=== PATIENT | female | born 1990 | race Caucasian/White ===

== ENCOUNTER 2018-11-03 11:32 | Emergency (ER) | payer BC, MEDICAID ==
[~2018-11-03] VITALS: Ht 165.1 cm; Wt 63.5 kg
[~2018-11-03 11:32] MED LIST: PREN1TAB39 PO
--- OUTSIDE RECORDS SUMMARY | 2018-11-03 11:39 | XMS REPORT | CCD ---
Author Author LUCHO YOLIE Jose Unknown Address [address] [place], [place] [id number] Care Team Providers Care Mold Puller Name Role Phone JAIN, KWAKU DO Attphys JAIN, KWAKU DO Prisurg Vital Signs Unknown or Not Available. Allergies Allergy Code Allergy Type Reaction Status CODEINE 2670 Drug allergy Active Procedures Procedure Code Procedure Type Date CBC W/ AUTO DIFF (RFLX MAN DIFF IF IND) 3455163 SNOMED CT 02/26/2015 COMPREHENSIVE METABOLIC PANEL 939600896 SNOMED CT [address] 02/26/2015 UA ROUTINE C&S IF IND 488730212 SNOMED CT 02/26/2015 ^CBC W/AUTO DIFF 4105687 SNOMED CT 02/26/2015 ^UA AUTO DIPSTICK ONLY 376748123 SNOMED CT 02/26/2015 History of Immunizations Immunization Code Date OPV 02 1992 OPV 02 1992 OPV 02 08/06/1993 OPV 02 03/30/1996 MMR 03 08/06/1993 MMR 03 03/30/1996 Hep B, adolescent or pediatric 08 03/30/1996 Hep B, adolescent or pediatric 08 11/18/1996 Hep B, adolescent or pediatric 08 01/20/1997 Hib (HbOC) 47 1992 Hib (HbOC) 47 1992 Hib (HbOC) 47 1992 Hib (HbOC) 47 08/06/1993 Novel [id number] 127 07/25/2009 Influenza, seasonal, injectable 141 06/01/2011 Problems Problem Code Start Date Resolved Date Status VAGINAL DELIVERY 650 Active Results COMPREHENSIVE METABOLIC PANEL - Collect Date/Time: 02/26/2015 10:05 Test Name Code Test Result Test Units Test Ref Range GLUCOSE 2345-7 98 MG/DL L=70 H=100 SODIUM 2951-2 139 MEQ/L L=135 H=148 POTASSIUM 2823-3 4.1 MEQ/L L=3.5 H=5.3 CHLORIDE 2075-0 108 MEQ/L L=96 H=110 CO2 2028-9 22 MEQ/L L=22 H=29 BUN 3094-0 13 MG/DL L=8 H=22 CREATININE 2160-0 0.7 MG/DL L=0.6 H=1.6 SGOT/AST 1920-8 17 IU/L L=10 H=40 SGPT/ALT 1742-6 14 IU/L L=8 H=54 ALK PHOS 6768-6 51 IU/L L=35 H=115 TOTAL PROTEIN 2885-2 6.9 G/DL L=5.5 H=8.5 ALBUMIN 1751-7 4.2 G/DL L=3.1 H=5.4 TOTAL BILI 1975-2 0.7 MG/DL L=0.0 H=1.5 CALCIUM 37357-0 9.0 MG/DL L=8.2 H=10.6 AGE 24 yrs GFR NonAA 105 GFR AA 127 eGFR >60 N/A eGFR AA* >60 N/A LIPASE - Collect Date/Time: 02/26/2015 10:05 Test Name Code Test Result Test Units Test Ref Range LIPASE 3040-3 17 U/L L=8 H=78 CBC W/ AUTO DIFF (RFLX MAN DIFF IF IND) - Collect Date/Time: 02/26/2015 10:05 Test Name Code Test Result Test Units Test Ref Range WBC 99347-6 10.3 TH/CMM L=4.5 H=10.8 RBC 789-8 4.68 ML/CMM L=4.20 H=5.40 HGB 718-7 13.7 G/DL L=12.0 H=16.0 HCT 4544-3 40.0 % L=37.0 H=47.0 MCV 86 FL L=81 H=99 MCH 29.3 PG L=27.0 H=33.0 MCHC 34.3 G/DL L=31.0 H=36.0 RDW SD 41 FL L=36 H=50 RDW CV 13.0 % L=0.0 H=14.8 MPV 12.3 FL L=9.3 H=12.5 PLT 777-3 148 TH/CMM L=130 H=440 NRBC# 0.00 TH/CMM L=0.00 H=0.00 NRBC% 0.0 /100WBC L=0.0 H=2.0 %NEUT 88.7 % %LYMP 5.9 % %MONO 4.9 % %EOS 0.4 % %BASO 0.1 % #NEUT 9.14 TH/CMM L=2.10 H=8.20 #LYMP 0.61 TH/CMM L=0.90 H=5.20 #MONO 0.50 TH/CMM L=0.16 H=1.00 #EOS 0.04 TH/CMM L=0.00 H=0.80 #BASO 0.01 TH/CMM L=0.00 H=0.20 MANUAL DIFF NOT IND N/A UA ROUTINE C&S IF IND - Collect Date/Time: 02/26/2015 11:36 Test Name Code Test Result Test Units Test Ref Range COLOR YELLOW N/A NL: YELLOW APPEARANCE CLEAR N/A NL: CLEAR SPEC GRAV 1.020 N/A NL: 1.002 - 1.022 pH 6.0 N/A NL: 5 - 9 PROTEIN NEGATIVE N/A NL: NEGATIVE mg/dl GLUCOSE NEGATIVE N/A NL: NEGATIVE mg/dl KETONE NEGATIVE N/A NL: NEGATIVE mg/dl BILIRUBIN NEGATIVE N/A NL: NEGATIVE BLOOD NEGATIVE N/A NL: NEGATIVE NITRITE NEGATIVE N/A NL: NEGATIVE LEUK SCREEN NEGATIVE N/A NL: NEGATIVE MICRO INDICATED? NOT INDICATED N/A Active Medications Unknown or Not Available. Medications Administered During Visit Unknown or Not Available. Encounters Encounter Diagnosis Diagnosis Code Start Date NONINF GASTROENTERIT NEC 5589 02/26/2015 Social History Smoking Status Code Start Date End Date Never smoker [id number] Patient Decision Aids Unknown or Not Available. Discharge Instructions You were admitted to [facility] on 02/26/2015 with a principal diagnosis of NONINF GASTROENTERIT NEC. You were discharged from [facility] on 02/26/2015. Should you have any questions prior to discharge, please contact a member of your healthcare team. If you have left the hospital and have any questions, please contact your primary care physician. Chief Complaint and Reason For Visit Chief Complaint Date of Onset VOMITING DIARRHEA Function Status Unknown or Not Available. Referral/Transition of Care Unknown or Not Available.
--- OUTSIDE RECORDS SUMMARY | 2018-11-03 11:39 | XMS REPORT | Continuity of Care Document ---
Author Author [facility] Organization [facility] Address Unknown Phone Unavailable Allergies Active Description Code Type Severity Reaction Onset Reported/Identified Relationship to Patient Clinical Status Yes CODEINE SULFATE SEVERE UNKNOWN Medications Medication Packaging Start Date Stop Date Route Dosage Sig KETOROLAC VIAL INJ 60 MG/2CC (TORADOL VIAL) MG 03/12/2017 03/12/2017 ONCE&1136 KETOROLAC VIAL INJ 60 MG/2CC (TORADOL VIAL) MG 06/05/2018 06/05/2018 ONCE&1232 PROMETHAZINE VIAL IM ONLY!! INJ 50 MG/CC (PHENERGAN VIAL (CAUTION!! ) MG 06/05/2018 06/05/2018 ONCE&1232 Problems Date Dx Coded Attending Type Code Diagnosis Diagnosed By 11/06/2009 Ot 789.02 ABDOMINAL PAIN, LEFT UPPER QUADRANT 11/20/2011 Ot 644.13 THREAT LABOR NEC-ANTEPAR 05/27/2016 MANI CARTER Ot 787.02 NAUSEA ALONE 05/27/2016 MANI CARTER Ot 789.00 ABDOMINAL PAIN, UNSPECIFIED SITE 03/12/2017 Zayra Li 724.3 SCIATICA 03/12/2017 Zayra Li M54.31 SCIATICA, RIGHT SIDE 06/05/2018 Reji Rios 346.90 MIGRAINE, UNSPECIFIED, WITHOUT MENTION OF INTRACTABLE MIGRAINE, WITHOUT MENTION OF STATUS MIGRAINOSUS 06/05/2018 Reji Rios G43.909 MIGRAINE, UNSP, NOT INTRACTABLE, WITHOUT STATUS MIGRAINOSUS 07/07/2018 Shadia Rodriguez 461.9 ACUTE SINUSITIS, UNSPECIFIED 07/07/2018 Shadia Rodriguez 462 ACUTE PHARYNGITIS 07/07/2018 Shadia Rodriguez 478.19 OTHER DISEASE OF NASAL CAVITY AND SINUSES 07/07/2018 Shadia Rodriguez 780.60 FEVER, UNSPECIFIED 07/07/2018 Jennifer, Shadia W J01.90 ACUTE SINUSITIS, UNSPECIFIED 07/07/2018 Jennifer, Shadia W J02.9 ACUTE PHARYNGITIS, UNSPECIFIED 07/07/2018 Jennifer, Shadia W P81.9 DISTURBANCE OF TEMPERATURE REGULATION OF , UNSPECIFIED 07/07/2018 Jennifer, Shadia W R09.81 NASAL CONGESTION 07/07/2018 Jennifer, Shadia W V11.8 07/07/2018 Shadia Rodriguez W V12.3 PERSONAL HISTORY OF DISEASES OF BLOOD AND BLOOD-FORMING ORGANS 07/07/2018 Shadia Rodriguez W Z86.2 PERSONAL HISTORY OF DISEASES OF THE BLOOD AND BLOOD-FORMING ORGANS AND CERTAIN DISORDERS INVOLVING THE IMMUNE MECHANISM 07/07/2018 Jennifer, Shadia W Z86.59 PERSONAL HISTORY OF OTHER MENTAL AND BEHAVIORAL DISORDERS 07/07/2018 Shadia Rodriguez W 461.9 ACUTE SINUSITIS, UNSPECIFIED 07/07/2018 Shadia Rodriguez W 462 ACUTE PHARYNGITIS 07/07/2018 Shadia Rodriguez W 478.19 OTHER DISEASE OF NASAL CAVITY AND SINUSES 07/07/2018 Shadia Rodriguez W 780.60 FEVER, UNSPECIFIED 07/07/2018 Shadia Rodriguez W J01.90 ACUTE SINUSITIS, UNSPECIFIED 07/07/2018 Shadia Rodriguez W J02.9 ACUTE PHARYNGITIS, UNSPECIFIED 07/07/2018 Shadia Rodriguez W P81.9 DISTURBANCE OF TEMPERATURE REGULATION OF , UNSPECIFIED 07/07/2018 Shadia Rodriguez W R09.81 NASAL CONGESTION 07/07/2018 Shadia Rodriguez W V11.8 07/07/2018 Shadia Rodriguez W V12.3 07/07/2018 Shadia Rodriguez W Z86.2 PERSONAL HISTORY OF DISEASES OF THE BLOOD AND BLOOD-FORMING ORGANS AND CERTAIN DISORDERS INVOLVING THE IMMUNE MECHANISM 07/07/2018 Shadia Rodriguez W Z86.59 PERSONAL HISTORY OF OTHER MENTAL AND BEHAVIORAL DISORDERS Procedures There is no data. Results Test Result Range - 07/07/18 16:53 Anion Gap 15 6-14 BUN 16 mg/dL 5-25 Calcium 9.9 mg/dL 8.3-10.4 Chloride 106 mmol/L 95-114 CO2 21 mEq/L 22-33 Creat 0.70 mg/dL 0.50-1.50 eGFR 101 mL/min/1.73m2 >59 Glucose 74 mg/dL 70-110 Osmo 285 280-295 Potassium 3.9 mmol/L 3.5-5.3 Sodium 138 mmol/L 134-148 Encounters ACCT No. Visit Date/Time Discharge Status Pt. Type Provider Facility Loc./Unit Complaint [id number] 06/03/2013 10:16:00 06/03/2013 23:59:59 CLS Outpatient MANI CARTER [facility] RAD ABD PAIN,NAUSEA [id number] 11/20/2011 11:52:00 Document Registration [id number] 11/06/2009 10:18:00 Document Registration [id number] 07/07/2018 16:52:00 07/07/2018 23:59:00 DIS Outpatient Shadia Rodriguez [id number] 06/05/2018 11:56:00 06/05/2018 13:10:00 DIS Outpatient Blanca [facility] [place] [id number] 03/12/2017 11:18:00 03/12/2017 12:02:00 [place] [facility] [place] [id number] 03/12/2017 11:36:53 Document Registration
[2018-11-03 12:00] LABS: BASOPHILS % (AUTO) 0 % (0-10); EOSINOPHILS # (AUTO) 0.1 10^3/uL (0.0-0.3); EOSINOPHILS % (AUTO) 2 % (0-10); HEMATOCRIT 41 % (35-52); HEMOGLOBIN 13.7 G/DL (11.5-16.0); LYMPHOCYTES # (AUTO) 1.4 X 10^3 (1.0-4.0); LYMPHOCYTES % (AUTO) 25 % (12-44); MEAN CORPUSCULAR HEMOGLOBIN 28 PG (25-34); MEAN CORPUSCULAR HGB CONC 34 G/DL (32-36); MEAN CORPUSCULAR VOLUME 85 FL (80-99); MEAN PLATELET VOLUME 12.8 FL (7.4-10.4); MONOCYTES # (AUTO) 0.4 X 10^3 (0.0-1.0); MONOCYTES % (AUTO) 7 % (0-12); NEUTROPHILS # (AUTO) 3.5 X 10^3 (1.8-7.8); NEUTROPHILS % (AUTO) 65 % (42-75); PLATELET COUNT 168 10^3/uL (130-400); RED CELL DISTRIBUTION WIDTH 13.2 % (10.0-14.5); WHITE BLOOD COUNT 5.4 10^3/uL (4.3-11.0)
--- NOTE | 2018-11-03 12:11 | ED Chest Pain ---
General Chief Complaint: Chest Pain Stated Complaint: SHARP PAIN IN CHEST SUGAR DROPPED Source: patient Exam Limitations: no limitations History of Present Illness Date Seen by Provider: Nov 03, 2018 Time Seen by Provider: 12:09 Initial Comments 28-year-old female who presents to the emergency room with complaints of left sided chest wall pain that is worse with deep breathing and when she pushes on her chest wall. She reports that this started at 1030 this a.m. She denies shortness of breath, nausea, vomiting, dizziness, lightheadedness. She is also concerned that she feels like her blood sugar dropped. She did not check her blood sugar but feels that it did drop because her hands started to shake. She denies having diabetes or hypoglycemia. Allergies and Home Medications Allergies Coded Allergies: codeine (Verified Allergy, Unknown, 11/03/18) Home Medications Vits W-Ca,Fe,Fa(<1MG) 1 Each Tablet, 1 TAB PO DAILY, (Reported) Patient Home Medication List Home Medication List Reviewed: Yes Review of Systems Review of Systems Constitutional: no symptoms reported, see HPI Respiratory: See HPI, Other (Chest pain with deep breathing) Cardiovascular: See HPI, Chest Pain All Other Systems Reviewed Negative Unless Noted: Yes Past Nadakyt-Xttcsy-Yfokqc Hx Past Med/Social Hx: Reviewed Nursing Past Med/Soc Hx Patient Social History Recent Foreign Travel: No Contact w/Someone Who Travel: No Immunizations Up To Date Date of Influenza Vaccine: Oct 01, 2011 Family Medical History Reviewed Nursing Family Hx Physical Exam Vital Signs Vital Signs - First Documented Capillary Refill : Less Than 3 Seconds Height, Weight, BMI Height: '" Weight: lbs. oz. kg; BMI Method: General Appearance: No Apparent Distress, WD/WN Respiratory: Lungs Clear, Normal Breath Sounds, No Accessory Muscle Use, No Respiratory Distress, Other (Left-sided chest wall tenderness) Cardiovascular: Regular Rate, Rhythm, No Edema, No Gallop, No JVD, No Murmur, Normal Peripheral Pulses, Other (Chest pain is reproducible with palpation) Extremity: Normal Capillary Refill Neurologic/Psychiatric: Alert, Oriented x3, Normal Mood/Affect Skin: Normal Color, Warm/Dry Progress/Results/Core Measures Results/Orders Lab Results Laboratory Tests Test 11/03/18 11:50 11/03/18 12:12 Range/Units White Blood Count 5.4 4.3-11.0 10^3/uL Red Blood Count 4.82 4.35-5.85 10^6/uL Hemoglobin 13.7 11.5-16.0 G/DL Hematocrit 41 35-52 % Mean Corpuscular Volume 85 80-99 FL Mean Corpuscular Hemoglobin 28 25-34 PG Mean Corpuscular Hemoglobin Concent 34 32-36 G/DL Red Cell Distribution Width 13.2 10.0-14.5 % Platelet Count 168 130-400 10^3/uL Mean Platelet Volume 12.8 H 7.4-10.4 FL Neutrophils (%) (Auto) 65 42-75 % Lymphocytes (%) (Auto) 25 12-44 % Monocytes (%) (Auto) 7 0-12 % Eosinophils (%) (Auto) 2 0-10 % Basophils (%) (Auto) 0 0-10 % Neutrophils # (Auto) 3.5 1.8-7.8 X 10^3 Lymphocytes # (Auto) 1.4 1.0-4.0 X 10^3 Monocytes # (Auto) 0.4 0.0-1.0 X 10^3 Eosinophils # (Auto) 0.1 0.0-0.3 10^3/uL Basophils # (Auto) 0.0 0.0-0.1 10^3/uL Sodium Level 140 135-145 MMOL/L Potassium Level 3.7 3.6-5.0 MMOL/L Chloride Level 107 98-107 MMOL/L Carbon Dioxide Level 24 21-32 MMOL/L Anion Gap 9 5-14 MMOL/L Blood Urea Nitrogen 10 7-18 MG/DL Creatinine 0.83 0.60-1.30 MG/DL Estimat Glomerular Filtration Rate > 60 BUN/Creatinine Ratio 12 Glucose Level 84 70-105 MG/DL Calcium Level 9.6 8.5-10.1 MG/DL Corrected Calcium 9.2 8.5-10.1 MG/DL Total Bilirubin 0.9 0.1-1.0 MG/DL Aspartate Amino Transf (AST/SGOT) 15 5-34 U/L Alanine Aminotransferase (ALT/SGPT) 14 0-55 U/L Alkaline Phosphatase 46 40-136 U/L Troponin I < 0.028 <0.028 NG/ML Total Protein 7.0 6.4-8.2 GM/DL Albumin 4.5 3.2-4.5 GM/DL Glucometer 83 70-110 MG/DL My Orders Orders - KSENIA ROBERSON Cbc With Automated Diff (11/03/18 11:49) Chest 1 View, Ap/Pa Only (11/03/18 11:49) Cardiac Profile 1 (11/03/18 11:49) Comprehensive Metabolic Panel (11/03/18 11:49) Saline Lock/Iv-Start (11/03/18 11:49) Ketorolac Injection (Toradol Injection) (11/03/18 12:15) Medications Given in ED Vital Signs/I&O 11/03/18 11/03/18 11/03/18 11:42 11:42 13:05 Temp 98.2 98.2 Pulse 70 56 Resp 15 15 B/P (MAP) 119/74 (89) 95/59 (71) Pulse Ox 98 97 O2 Delivery Room Air Room Air Room Air Progress Progress Note : Time: 12:43 Progress Note I have seen and evaluated the patient. I have informed her of her imaging and laboratory studies. She is pain-free after the Toradol administration. She has exam findings consistent with pleuritic chest pain. She agrees with plan of care , plans for discharge, return precautions were given. Diagnostic Imaging Diagonstic Imaging: Xray Plain Films/CT/US/NM/MRI: chest Comments [facility] [place] NAME: LC CR[facility] REC#: [id number] PT STATUS: REG ER : 1990 PHYSICIAN: KSENIA ROBERSON [facility] ADMIT DATE: 11/03/18/ER Draft Date of Exam:11/03/18 CHEST 1 VIEW, AP/PA ONLY PATIENT HISTORY: Chest pain. TECHNIQUE: Single frontal view of the chest. COMPARISON: None. FINDINGS: The lung volumes are normal. No focal consolidation is seen. No large pleural effusion or pneumothorax is seen. The cardiomediastinal silhouette is normal in size and contour. No acute osseous abnormality is seen. IMPRESSION: No acute pulmonary abnormality seen. Dictated on workstation # [id number] Dict: 11/03/18 1228 Trans: 11/03/18 1231 AS6 [id number] Interpreted by: ODALIS XIE MD Electronically signed by: Reviewed: Reviewed by Me Departure Impression Primary Impression: Pleurisy Disposition: 01 HOME, SELF-CARE Condition: Stable/Unchanged Departure-Patient Inst. Decision time for Depature: 12:43 Referrals: NO,LOCAL PHYSICIAN (PCP/Family) Primary Care Physician Patient Instructions: Pleuritic Chest Pain (DC) Add. Discharge Instructions: You may use ibuprofen and Tylenol as directed by the bottle for pain relief. Follow-up with your primary care provider within 1 week for recheck. Return back to the emergency room for worsening symptoms or concerns as needed. All discharge instructions reviewed with patient and/or family. Voiced understanding. KSENIA ROBERSON Nov 03, 2018 12:11
[2018-11-03] MEDS ORDERED: KETOROLAC 30 MG/ML VIAL IVP ONE (12:15)
[2018-11-03 12:21] LABS: ALANINE AMINOTRANSFERASE 14 U/L (0-55); ALBUMIN 4.5 GM/DL (3.2-4.5); ALKALINE PHOSPHATASE 46 U/L (40-136); BILIRUBIN,TOTAL 0.9 MG/DL (0.1-1.0); BUN/CREATININE RATIO 12; CALCIUM 9.6 MG/DL (8.5-10.1); CARBON DIOXIDE 24 MMOL/L (21-32); CHLORIDE 107 MMOL/L (98-107); CREATININE SERUM 0.83 MG/DL (0.60-1.30); GFR ESTIMATED > 60; GLUCOSE 84 MG/DL (70-105); POTASSIUM 3.7 MMOL/L (3.6-5.0); SODIUM 140 MMOL/L (135-145)
--- NOTE | 2018-11-03 12:32 | Diagnostic Imaging Report ---
PATIENT HISTORY: Chest pain. TECHNIQUE: Single frontal view of the chest. COMPARISON: None. FINDINGS: The lung volumes are normal. No focal consolidation is seen. No large pleural effusion or pneumothorax is seen. The cardiomediastinal silhouette is normal in size and contour. No acute osseous abnormality is seen. IMPRESSION: No acute pulmonary abnormality seen. Dictated by: Dictated on workstation # [id number]
[2018-11-03 13:05] VITALS: BP 95/59
== END 2018-11-03 13:05 | disposition home or self-care (01) ==
LOC: EDUNIT# 11:32 → ER 11:35
DX: R07.81 Pleurodynia (principal); Z88.5 Allergy status to narcotic agent
CPT/HCPCS: 36415; 71045; 80053; 82962; 84484; 85025; 93005

== ENCOUNTER → 2019-01-04 | Outpatient (REF) ==
--- NOTE | 2019-01-04 12:40 | Diagnostic Imaging Report ---
INDICATION: Right foot injury. FINDINGS: Three views of the right foot show no fracture, dislocation or other acute abnormalities. IMPRESSION: Negative right foot. Dictated by: Dictated on workstation # [id number]
== END | disposition home or self-care (01) ==
LOC: RAD 12:10
PROVIDERS: ATTEND Nurse Practitioner Family
CPT/HCPCS: 73630

== ENCOUNTER 2019-08-17 14:44 | Emergency (ER) | payer MEDICAID ==
[~2019-08-17] VITALS: Ht 167.7 cm; Wt 68.1 kg
[2019-08-17] MEDS ORDERED: ACET/BUTAL/CAFF (FIORICET) TAB PO PRN (16:00)
--- NOTE | 2019-08-17 16:05 | ED General ---
General Chief Complaint: General Problems/Pain Stated Complaint: HALLUCINATIONS Source of Information: Patient Exam Limitations: No Limitations History of Present Illness Date Seen by Provider: Aug 17, 2019 Time Seen by Provider: 16:01 Initial Comments To ER by mother with reports of hallucinations. These began Friday with a headache. No fevers. Mother has a history of hemiplegic migraines that present as a stroke she states, she thought maybe a migraine to be associated with the hallucinations. The hallucinations were evaluated as well as the migraine at [facility] with CT scan and labs. She was given medications which did alleviate the headache. Hallucinations at that time included that her sister who was with her and her nephew appeared to be covered in blood and "gravely injured. Hallucinations subsided then recurred today while she was driving, she believes that she could see a group of people on the side of the road waving cars trying to stop them however no one was stopping. Later while driving with her mother she told her mother to watch out for the fluid here, there was no vertigo ear. No personal history of mental illness, denies drug use. Does have an aunt with bipolar/schizophrenia. Timing/Duration: 1-2 Days Severity: Moderate Associated Systoms: Headaches; No Nausea/Vomiting Allergies and Home Medications Allergies Coded Allergies: codeine (Verified Allergy, Unknown, 11/03/18) Home Medications Vits W-Ca,Fe,Fa(<1MG) 1 Each Tablet, 1 TAB PO DAILY, (Reported) Quetiapine Fumarate 25 Mg Tablet, 25 MG PO BID Prescribed by: DAVID TELLEZ on 08/17/19 6361 Patient Home Medication List Home Medication List Reviewed: Yes Review of Systems Review of Systems Constitutional: see HPI; No chills, No fever, No malaise, No weakness EENTM: see HPI Respiratory: no symptoms reported Cardiovascular: no symptoms reported Genitourinary: no symptoms reported Musculoskeletal: no symptoms reported Skin: no symptoms reported Psychiatric/Neurological: See HPI; Denies Anxiety, Denies Depressed, Denies Emotional Problems; Headache Hematologic/Lymphatic: No Symptoms Reported Immunological/Allergic: no symptoms reported Past Mdclrri-Pzdwjx-Tystuf Hx Patient Social History Alcohol Use: Denies Use Recreational Drug Use: No Smoking Status: Former Smoker Type Used: Cigarettes 2nd Hand Smoke Exposure: No Recent Foreign Travel: No Contact w/Someone Who Travel: No Recent Hopitalizations: No Physical Abuse: No Sexual Abuse: No Mistreated: No Fear: No Immunizations Up To Date Tetanus Booster (TDap): Unknown PED Vaccines UTD: Yes Date of Influenza Vaccine: Oct 01, 2011 Past Medical History Surgeries: Yes Appendectomy, Gallbladder, Orthopedic Respiratory: No Cardiac: No Neurological: No Genitourinary: No Gastrointestinal: No Musculoskeletal: No HEENT: No Cancer: No Psychosocial: No Integumentary: No Blood Disorders: No Adverse Reaction/Blood Tranf: No Physical Exam Vital Signs Vital Signs - First Documented 08/17/19 15:44 Temp 36.5 Pulse 75 Resp 20 B/P (MAP) 115/75 (88) Pulse Ox 98 O2 Delivery Room Air Capillary Refill : Height, Weight, BMI Height: 5'5.00" Weight: 140lbs. oz. 63.885568yr; BMI Method:Estimated General Appearance: No Apparent Distress, WD/WN, Other (GCS 15 alert and oriented, conversation is appropriate and pleasant, responses are appropriate.) Eyes: Bilateral Eye Normal Inspection, Bilateral Eye PERRL, Bilateral Eye EOMI HEENT: PERRL/EOMI, TMs Normal, Normal ENT Inspection Neck: Full Range of Motion, Normal Inspection; No Tender Lateral, No Tender Midline Respiratory: No Accessory Muscle Use, No Respiratory Distress Cardiovascular: Regular Rate, Rhythm, Normal Peripheral Pulses Gastrointestinal: Non Tender, Soft Extremity: Normal Capillary Refill, Normal Inspection Neurologic/Psychiatric: Alert, Oriented x3 Skin: Normal Color, Warm/Dry Progress/Results/Core Measures Suspected Sepsis SIRS Temperature: Pulse: Respiratory Rate: Laboratory Tests 08/17/19 17:02: White Blood Count 6.3 Blood Pressure / Mean: Laboratory Tests 08/17/19 17:02: Creatinine 0.81, Platelet Count 174, Total Bilirubin 0.6 Results/Orders Lab Results Laboratory Tests Test 08/17/19 16:45 08/17/19 17:02 Range/Units Urine Color YELLOW Urine Clarity CLEAR Urine pH 5.5 5-9 Urine Specific Raymond >=1.030 1.016-1.022 Urine Protein NEGATIVE NEGATIVE Urine Glucose (UA) NEGATIVE NEGATIVE Urine Ketones NEGATIVE NEGATIVE Urine Nitrite NEGATIVE NEGATIVE Urine Bilirubin NEGATIVE NEGATIVE Urine Urobilinogen 0.2 < = 1.0 MG/DL Urine Leukocyte Esterase TRACE NEGATIVE Urine RBC (Auto) TRACE-I NEGATIVE Urine RBC NONE /HPF Urine WBC 2-5 /HPF Urine Squamous Epithelial Cells 10-25 H /HPF Urine Crystals NONE /LPF Urine Bacteria MODERATE H /HPF Urine Casts NONE /LPF Urine Mucus NEGATIVE /LPF Urine Culture Indicated NO Urine Opiates Screen NEGATIVE NEGATIVE Urine Oxycodone Screen NEGATIVE NEGATIVE Urine Methadone Screen NEGATIVE NEGATIVE Urine Propoxyphene Screen NEGATIVE NEGATIVE Urine Barbiturates Screen NEGATIVE NEGATIVE Ur Tricyclic Antidepressants Screen NEGATIVE NEGATIVE Urine Phencyclidine Screen NEGATIVE NEGATIVE Urine Amphetamines Screen NEGATIVE NEGATIVE Urine Methamphetamines Screen NEGATIVE NEGATIVE Urine Benzodiazepines Screen NEGATIVE NEGATIVE Urine Cocaine Screen NEGATIVE NEGATIVE Urine Cannabinoids Screen NEGATIVE NEGATIVE White Blood Count 6.3 4.3-11.0 10^3/uL Red Blood Count 4.50 4.35-5.85 10^6/uL Hemoglobin 13.1 11.5-16.0 G/DL Hematocrit 39 35-52 % Mean Corpuscular Volume 86 80-99 FL Mean Corpuscular Hemoglobin 29 25-34 PG Mean Corpuscular Hemoglobin Concent 34 32-36 G/DL Red Cell Distribution Width 12.6 10.0-14.5 % Platelet Count 174 130-400 10^3/uL Mean Platelet Volume 12.3 H 7.4-10.4 FL Neutrophils (%) (Auto) 67 42-75 % Lymphocytes (%) (Auto) 25 12-44 % Monocytes (%) (Auto) 6 0-12 % Eosinophils (%) (Auto) 3 0-10 % Basophils (%) (Auto) 0 0-10 % Neutrophils # (Auto) 4.2 1.8-7.8 X 10^3 Lymphocytes # (Auto) 1.6 1.0-4.0 X 10^3 Monocytes # (Auto) 0.4 0.0-1.0 X 10^3 Eosinophils # (Auto) 0.2 0.0-0.3 10^3/uL Basophils # (Auto) 0.0 0.0-0.1 10^3/uL D-Dimer <= 0.27 0.00-0.49 UG/ML Sodium Level 139 135-145 MMOL/L Potassium Level 4.0 3.6-5.0 MMOL/L Chloride Level 108 H 98-107 MMOL/L Carbon Dioxide Level 21 21-32 MMOL/L Anion Gap 10 5-14 MMOL/L Blood Urea Nitrogen 13 7-18 MG/DL Creatinine 0.81 0.60-1.30 MG/DL Estimat Glomerular Filtration Rate > 60 BUN/Creatinine Ratio 16 Glucose Level 85 70-105 MG/DL Calcium Level 9.1 8.5-10.1 MG/DL Corrected Calcium 8.9 8.5-10.1 MG/DL Total Bilirubin 0.6 0.1-1.0 MG/DL Aspartate Amino Transf (AST/SGOT) 11 5-34 U/L Alanine Aminotransferase (ALT/SGPT) 15 0-55 U/L Alkaline Phosphatase 40 40-136 U/L Total Protein 6.7 6.4-8.2 GM/DL Albumin 4.2 3.2-4.5 GM/DL Thyroid Stimulating Hormone (TSH) 0.52 0.35-4.94 UIU/ML Free Thyroxine 0.91 0.70-1.48 NG/DL Serum Test, Qualitative NEGATIVE NEGATIVE My Orders Orders - DAVID TELLEZ APRN Cbc With Automated Diff (08/17/19 15:58) Thyroid Stimulating Hormone (08/17/19 15:58) Free T4 (Free Thyroxine) (08/17/19 15:58) Ct Head Wo (08/17/19 15:58) Ua Culture If Indicated (08/17/19 15:58) Drug Screen Stat (Urine) (08/17/19 15:58) Comprehensive Metabolic Panel (08/17/19 15:58) Hcg,Qualitative Serum (08/17/19 15:58) Butalbital/Apap/Caffeine Tab (Fioricet T (08/17/19 16:00) Fibrin Degradation Products (08/17/19 16:34) Medications Given in ED Current Medications Medications Dose Ordered Sig/Luis Route Start Time Stop Time Status Last Admin Dose Admin Acetaminophen/ Butalbital/ Caffeine 1 tab ONCE PRN PO 08/17/19 16:00 08/17/19 18:05 DC 08/17/19 17:50 1 TAB Vital Signs/I&O 08/17/19 08/17/19 15:44 18:05 Temp 36.5 36.5 Pulse 75 75 Resp 20 20 B/P (MAP) 115/75 (88) 115/75 (88) Pulse Ox 98 98 O2 Delivery Room Air Capillary Refill : Diagnostic Imaging Diagonstic Imaging: Xray Comments NAME: LC CRUZ REC#: [id number] PT STATUS: REG ER : 1990 PHYSICIAN: DAVID TELLEZ APRN ADMIT DATE: 08/17/19/ER Draft POSDate of Exam:08/17/19 CT HEAD WO PROCEDURE: CT head without contrast. TECHNIQUE: Multiple contiguous axial images were obtained through the brain without the use of intravenous contrast. Auto Exposure Controls were utilized during the CT exam to meet ALARA standards for radiation dose reduction. INDICATION: Head pain, hallucinations. FINDINGS: There is no hemorrhage, hydrocephalus, edema, mass, mass effect, or evidence for elevation of the intracranial pressures. The basal cisterns are patent, and there is no sulcal effacement. Figueroa-white matter differentiation is well maintained. Orbits, sinuses, and calvarium appear nonacute. IMPRESSION: Normal CT head. Dictated on workstation # [id number] Dict: 08/17/19 1617 Trans: 08/17/19 1619 [id number] Interpreted by: CHRISTOPHER WOODSON Electronically signed by: Departure Communication (Admissions) She is scheduled for an MRI outpatient tomorrow. She is alert and oriented cooperative pleasant here. Labs are unremarkable vitals are stable no nuchal rigidity Impression Primary Impression: Hallucination Disposition: 01 HOME, SELF-CARE Condition: Stable Departure-Patient Inst. Decision time for Depature: 17:25 Referrals: NO,LOCAL PHYSICIAN (PCP) Primary Care Physician LOLLY ROSE (Family) Primary Care Physician Patient Instructions: NO INSTRUCTIONS GIVEN Add. Discharge Instructions: 1. Return to ER for any concerns 2. Follow-up with your doctor. Medication as directed. All discharge instructions reviewed with patient and/or family. Voiced understanding. Scripts Quetiapine Fumarate (Seroquel) 25 Mg Tablet 25 MG PO BID, #10 TAB Prov: DAVID TELLEZ APRN 08/17/19 DAVID TELLEZ APRN Aug 17, 2019 16:05 POS
--- NOTE | 2019-08-17 16:20 | Diagnostic Imaging Report ---
PROCEDURE: CT head without contrast. TECHNIQUE: Multiple contiguous axial images were obtained through the brain without the use of intravenous contrast. Auto Exposure Controls were utilized during the CT exam to meet ALARA standards for radiation dose reduction. INDICATION: Head pain, hallucinations. FINDINGS: There is no hemorrhage, hydrocephalus, edema, mass, mass effect, or evidence for elevation of the intracranial pressures. The basal cisterns are patent, and there is no sulcal effacement. Figueroa-white matter differentiation is well maintained. Orbits, sinuses, and calvarium appear nonacute. IMPRESSION: Normal CT head. Dictated by: Dictated on workstation # [id number]
[2019-08-17 16:53] LABS: BILIRUBIN,URINE NEGATIVE (NEGATIVE); CLARITY,URINE CLEAR; COLOR,URINE YELLOW; GLUCOSE, URINE (UA) NEGATIVE (NEGATIVE); KETONES,URINE NEGATIVE (NEGATIVE); LEUKOCYTE ESTERASE ,URINE TRACE (NEGATIVE); NITRITE,URINE NEGATIVE (NEGATIVE); PH,URINE 5.5 (5-9); PROTEIN,URINE NEGATIVE (NEGATIVE)
[2019-08-17 17:06] LABS: AMPHETAMINE SCREEN, URINE NEGATIVE (NEGATIVE); BARBITURATE SCREEN URINE NEGATIVE (NEGATIVE); BENZODIAZEPINES SCREEN URINE NEGATIVE (NEGATIVE); CANNABINOID SCREEN, URINE NEGATIVE (NEGATIVE); COCAINE SCREEN URINE NEGATIVE (NEGATIVE); METHADONE STAT NEGATIVE (NEGATIVE); METHAMPHETAMINE SCREEN URINE S NEGATIVE (NEGATIVE); OPIATE SCREEN URINE NEGATIVE (NEGATIVE); OXYCODONE STAT NEGATIVE (NEGATIVE); PROPOXYPHENE STAT NEGATIVE (NEGATIVE); TRICYCLIC ANTIDEPRESSANTS SCRE NEGATIVE (NEGATIVE)
[2019-08-17 17:09] LABS: BASOPHILS % (AUTO) 0 % (0-10); EOSINOPHILS # (AUTO) 0.2 10^3/uL (0.0-0.3); EOSINOPHILS % (AUTO) 3 % (0-10); HEMATOCRIT 39 % (35-52); HEMOGLOBIN 13.1 G/DL (11.5-16.0); LYMPHOCYTES # (AUTO) 1.6 X 10^3 (1.0-4.0); LYMPHOCYTES % (AUTO) 25 % (12-44); MEAN CORPUSCULAR HEMOGLOBIN 29 PG (25-34); MEAN CORPUSCULAR HGB CONC 34 G/DL (32-36); MEAN CORPUSCULAR VOLUME 86 FL (80-99); MEAN PLATELET VOLUME 12.3 FL (7.4-10.4); MONOCYTES # (AUTO) 0.4 X 10^3 (0.0-1.0); MONOCYTES % (AUTO) 6 % (0-12); NEUTROPHILS # (AUTO) 4.2 X 10^3 (1.8-7.8); NEUTROPHILS % (AUTO) 67 % (42-75); PLATELET COUNT 174 10^3/uL (130-400); RED CELL DISTRIBUTION WIDTH 12.6 % (10.0-14.5); WHITE BLOOD COUNT 6.3 10^3/uL (4.3-11.0)
[2019-08-17 17:12] LABS: BACTERIA,URINE MODERATE /HPF
[2019-08-17] MEDS ORDERED: QUET25TA PO (17:27)
[2019-08-17 17:30] LABS: ALANINE AMINOTRANSFERASE 15 U/L (0-55); ALBUMIN 4.2 GM/DL (3.2-4.5); ALKALINE PHOSPHATASE 40 U/L (40-136); BILIRUBIN,TOTAL 0.6 MG/DL (0.1-1.0); BUN/CREATININE RATIO 16; CALCIUM 9.1 MG/DL (8.5-10.1); CARBON DIOXIDE 21 MMOL/L (21-32); CHLORIDE 108 MMOL/L (98-107); CREATININE SERUM 0.81 MG/DL (0.60-1.30); GFR ESTIMATED > 60; GLUCOSE 85 MG/DL (70-105); SODIUM 139 MMOL/L (135-145); TOTAL PROTEIN 6.7 GM/DL (6.4-8.2)
[2019-08-17 17:50] LABS: FREE T4 (FREE THYROXINE) 0.91 NG/DL (0.70-1.48)
[2019-08-17 18:05] VITALS: BP 115/75
== END 2019-08-17 18:05 | disposition home or self-care (01) ==
LOC: EDUNIT# 14:44 → ER 14:45
DX: R44.3 Hallucinations, unspecified (principal); Z88.5 Allergy status to narcotic agent; Z87.891 Personal history of nicotine dependence; Z90.49 Acquired absence of other specified parts of digestive tract
CPT/HCPCS: 36415; 70450; 80053; 80306; 81000; 84439; 84443; 84703; 85025; 85379

== ENCOUNTER → 2020-03-27 | Outpatient (CLI) | payer MEDICAID ==
[~2020-03-27] MED LIST changes: +QUET25TA PO
== END ==
LOC: CARD 11:39
PROVIDERS: ATTEND Internal Medicine Cardiovascular Disease
DX: R00.2 Palpitations (principal)
CPT/HCPCS: 93306

== ENCOUNTER 2020-08-17 07:10 | Emergency (ER) | payer MEDICAID ==
[~2020-08-17] VITALS: Ht 167.7 cm; Wt 68.0 kg
[2020-08-17 07:35] VITALS: BP 135/92
[2020-08-17] MEDS ORDERED: methylPREDNISolone 40 MG/ML (DEPO MEDROL) VIAL IM ONE (07:45)
[2020-08-17] MEDS ORDERED: BUPIVACAINE 0.5% 30 ML (SENSORCAINE) VIAL INJ ONE (07:45)
[2020-08-17] MEDS ORDERED: KETOROLAC 60 MG/2 ML VIAL IM ONE (07:45)
--- NOTE | 2020-08-17 07:52 | ED Back Pain ---
General Chief Complaint: Back Problems Stated Complaint: HIP PAIN Nursing Triage Note: PT TO RM 6 BY WHEELCHAIR WITH COMPLAINT OF LEFT SIDED BACK PAIN THAT RADIATES TO ANKLE. STATES HAS BEEN WORKED UP FOR SCIATICA PAIN BY PCP. STATES PAIN STARTED THIS MORNING AFTER CATCHING PANT LEG ON HEATER AND PULLED LEG BACK. Nursing Sepsis Screen: No Definite Risk Source of Information: Patient Exam Limitations: No Limitations History of Present Illness Date Seen by Provider: Aug 17, 2020 Time Seen by Provider: 07:34 Initial Comments Patient presents ER by private conveyance with chief complaint that this morning she was walking in her pants leg got caught on something causing her to hyperextend her hip and aggravate her known sciatic pain. She finished a course of steroids for her sciatic nerve pain from [facility] 1 week ago. She also has had problems with her hip as well as a fracture when she was 11 years old and her right ankle through the growth plate. She has not had to have any surgeries on this hip. She is not having any pain in the hip and no limitation to range of motion. She was planning to go back and see [facility] as the last course of steroids helped but did not completely stop her pain. She does occasionally take naproxen as necessary. She is not having loss of control of bowel or bladder, saddle anesthesia, falls or weakness. She does feel electric pain from time to time going all the way down to the level of her ankle. She has no history of previous imaging of her back. Allergies and Home Medications Allergies Coded Allergies: codeine (Verified Allergy, Unknown, 11/03/18) Home Medications Vits W-Ca,Fe,Fa(<1MG) 1 Each Tablet, 1 TAB PO DAILY, (Reported) Quetiapine Fumarate 25 Mg Tablet, 25 MG PO BID Prescribed by: DAVID TELLEZ on 08/17/19 3825 Patient Home Medication List Home Medication List Reviewed: Yes Review of Systems Constitutional: No chills, No diaphoresis EENTM: No ear discharge, No ear pain Respiratory: No cough, No short of breath Cardiovascular: No chest pain, No edema Gastrointestinal: No abdominal pain, No nausea, No vomiting Genitourinary: No discharge, No dysuria Control/STD Prophylaxis: IUD Musculoskeletal: see HPI, back pain, joint pain All Other Systems Reviewed Negative Unless Noted: Yes Past Mntzgbh-Wrpzdq-Djuqjg Hx Patient Social History Alcohol Use: Denies Use Recreational Drug Use: No Smoking Status: Former Smoker Type Used: Cigarettes 2nd Hand Smoke Exposure: No Recent Foreign Travel: No Contact w/Someone Who Travel: No Recent Infectious Disease Expo: No Recent Hopitalizations: No Immunizations Up To Date Tetanus Booster (TDap): Unknown PED Vaccines UTD: Yes Date of Influenza Vaccine: Oct 01, 2011 Past Medical History Surgeries: Yes Appendectomy, Gallbladder, Orthopedic Respiratory: No Cardiac: No Neurological: No Genitourinary: No Gastrointestinal: No Musculoskeletal: No HEENT: No Cancer: No Psychosocial: No Integumentary: No Blood Disorders: No Adverse Reaction/Blood Tranf: No Physical Exam Vital Signs Vital Signs - First Documented 08/17/20 07:35 Temp 36.3 Pulse 121 Resp 20 B/P (MAP) 135/92 (106) Pulse Ox 97 O2 Delivery Room Air Capillary Refill : Less Than 3 Seconds Height, Weight, BMI Height: 5'5.00" Weight: 140lbs. oz. 63.830481us; 24.00 BMI Method:Estimated General Appearance: WD/WN, Mild Distress HEENT: PERRL/EOMI, Pharynx Normal, Moist Mucous Membranes Neck: Full Range of Motion, Normal Inspection Cardiovascular: Regular Rate, Rhythm, No Edema, Normal Peripheral Pulses Respiratory: No Accessory Muscle Use, No Respiratory Distress Back: Normal Inspection, No CVA Tenderness, Muscle Spasm (Left-sided lower paravertebral tenderness over the distribution of the sciatic nerve lateral to L5-S1 facet joint) Extremity: Normal Capillary Refill, Normal Inspection, Normal Range of Motion Neurologic/Psychiatric: Alert, Oriented x3, No Motor/Sensory Deficits, Normal Mood/Affect, pediatric physical therapy assistant II-XII Norm as Tested Skin: Normal Color, Warm/Dry Procedures/Interventions Progress Left L5-S1 facet joint was palpated and recreated symptoms so using a 1-1/2 inch 25-gauge needle we put an admixture of 1.5 cc of 2% lidocaine with epinephrine, 1.5 cc of half percent Marcaine without epinephrine, 1 cc of 40 mg/mL Depo- Medrol. We used a Z track injection method and had minimal bleeding. Minimal pain. Patient tolerated the procedure well. After the skin site was cleaned with alcohol, injected it was then dressed with a Band-Aid. Progress/Results/Core Measures Results/Orders My Orders Orders - ARIS BORJAS Ketorolac Injection (Toradol Injection) (08/17/20 07:45) Methylprednisolone Acetate Inj (Depo-Med (08/17/20 07:45) Bupivacaine 0.5% Injection (Sensorcaine (08/17/20 07:45) Medications Given in ED Current Medications Medications Dose Ordered Sig/Luis Route Start Time Stop Time Status Last Admin Dose Admin Bupivacaine HCl 30 ml ONCE ONCE INJ 08/17/20 07:45 08/17/20 07:47 DC 08/17/20 08:01 30 ML Ketorolac Tromethamine 60 mg ONCE ONCE IM 08/17/20 07:45 08/17/20 07:47 DC 08/17/20 08:00 60 MG Methylprednisolone Acetate 40 mg ONCE ONCE IM 08/17/20 07:45 08/17/20 07:47 DC 08/17/20 08:01 40 MG Vital Signs/I&O 08/17/20 07:35 Temp 36.3 Pulse 121 Resp 20 B/P (MAP) 135/92 (106) Pulse Ox 97 O2 Delivery Room Air Blood Pressure Mean: 106 Progress Progress Note : Time: 07:50 Progress Note Patient wants relief of her nontraumatic, acute sciatic pain. Plan to do a point tenderness injection at the level of the L5-S1 facet joint with Depo-Med rol, bupivacaine and lidocaine with epinephrine. We discussed putting her on 1 to 2 weeks of constant NSAIDs. She says she will buy naproxen [id number]. Encouraged her to follow-up with her primary care doctor for further evaluation of her significant back pain. Departure Impression Primary Impression: Lumbago with sciatica, left side Qualified Codes: M54.42 - Lumbago with sciatica, left side Disposition: 01 HOME, SELF-CARE Condition: Stable Departure-Patient Inst. Decision time for Depature: 07:52 Referrals: NO,LOCAL PHYSICIAN (PCP) Primary Care Physician LOLLY ROSE (Family) Primary Care Physician Patient Instructions: Sciatica Exercises, Sciatica (DC) Add. Discharge Instructions: While you are at home for the next couple days you should ice your low back down for 20 minutes every 2 hours. Heating pads between time can be helpful. While you are on your feet you can use topical creams such as icy hot, Biofreeze, Blue emu, capsaicin oil etc. Drink plenty of fluids. Start taking naproxen 2 capsules twice a day on a scheduled basis for the next 2 weeks. If you begin to have chest pain or acid reflux then stop the medication and follow-up with your doctor. This shot contains a steroid which will slowly release over the next 5 to 7 days. Side effects include feeling having too much energy or being wired and may be difficult to get to sleep. Tylenol 1000 mg every 8 hours as necessary for breakthrough pain. Follow-up with your primary care doctor for further evaluation and management of your symptoms. Promptly return to the nearest ER if you experience loss of control of bowel or bladder, numbness or weakness resulting in falls. All discharge instructions reviewed with patient and/or family. Voiced understanding. Work/School Note: Work Release Form Date Seen in the Emergency Department: Aug 17, 2020 Return to Work: Aug 18, 2020 Restrictions: Need Release from Doctor Other Restrictions Listed Below: Do not lift, push or pull above 20 pounds until 08/24/2020. ARIS BORJAS Aug 17, 2020 07:52
== END 2020-08-17 08:20 | disposition home or self-care (01) ==
LOC: EDUNIT# 07:10 → ER 07:12
DX: M54.42 Lumbago with sciatica, left side (principal); Z87.891 Personal history of nicotine dependence; Z88.5 Allergy status to narcotic agent
CPT/HCPCS: 99284

== ENCOUNTER 2020-10-13 16:44 | Emergency (ER) | payer MEDICAID ==
[~2020-10-13] VITALS: Ht 165 cm; Wt 68.0 kg
--- NOTE | 2020-10-13 17:08 | ED Headache ---
General Chief Complaint: Head/Cervical Problems Stated Complaint: SORE THROAT;DIZZY;COUGH;FELL AND HIT HEAD Nursing Triage Note: TRIPPED OVER STRING TODAY CAUSING HER TO FALL ET HITTING THE BACK OF HER HEAD. POSITIVE LOC. COMPLAINS OF HEAD PAIN. COUGH SOA X1 WEEK WAS TESTED X1 WEEK AGO FOR COVID AND IT WAS NEG. Nursing Sepsis Screen: No Definite Risk Source: patient Exam Limitations: no limitations History of Present Illness Date Seen by Provider: Oct 13, 2020 Time Seen by Provider: 17:08 Initial Comments To ER with reports that she tripped over a string at home causing her to fall and strike her head. Positive loss of consciousness no headache. She is also had cough and shortness of breath and sore throat for 1 week. Her sister has walking pneumonia and she believes that she has it too. No fevers. Timing/Duration: 4-6 hours Severity/Quality: moderate Location: global Prior Headaches/Recent Trauma: head trauma < 24 hrs ago Associated Symptoms: No confusion, No nausea/vomiting, No stiff neck Allergies and Home Medications Allergies Coded Allergies: codeine (Verified Allergy, Unknown, 11/03/18) Home Medications Vits W-Ca,Fe,Fa(<1MG) 1 Each Tablet, 1 TAB PO DAILY, (Reported) Quetiapine Fumarate 25 Mg Tablet, 25 MG PO BID Prescribed by: DAVID TELLEZ on 08/17/19 1727 Patient Home Medication List Home Medication List Reviewed: Yes Review of Systems Review of Systems Constitutional: see HPI Eyes: No Symptoms Reported Ears, Nose, Mouth, Throat: no symptoms reported Respiratory: no symptoms reported Cardiovascular: no symptoms reported Genitourinary: no symptoms reported Musculoskeletal: no symptoms reported Skin: no symptoms reported Psychiatric/Neurological: Headache Past Xalusin-Jlpwqa-Glffye Hx Patient Social History Alcohol Use: Denies Use Smoking Status: Never a Smoker Type Used: Cigarettes 2nd Hand Smoke Exposure: No Recent Infectious Disease Expo: No Recent Hopitalizations: No Immunizations Up To Date Tetanus Booster (TDap): Unknown PED Vaccines UTD: Yes Date of Influenza Vaccine: Oct 01, 2011 Past Medical History Surgeries: Yes Appendectomy, Gallbladder, Orthopedic Respiratory: No Cardiac: No Neurological: No Genitourinary: No Gastrointestinal: No Musculoskeletal: No HEENT: No Cancer: No Psychosocial: No Integumentary: No Blood Disorders: No Adverse Reaction/Blood Tranf: No Physical Exam Vital Signs Vital Signs - First Documented 10/13/20 17:00 Temp 36.7 Pulse 88 Resp 16 B/P (MAP) 130/64 (86) Pulse Ox 98 O2 Delivery Room Air Capillary Refill : Less Than 3 Seconds Height, Weight, BMI Height: 5'5.00" Weight: 140lbs. oz. 63.668638gw; 24.00 BMI Method:Estimated General Appearance: WD/WN, no apparent distress HEENT: PERRL/EOMI, normal ENT inspection, TMs normal, other (There is some slight cobblestoning of the oropharynx) Neck: non-tender, full range of motion Cardiovascular: regular rate, rhythm Respiratory: chest non-tender, lungs clear, normal breath sounds Gastrointestinal: normal bowel sounds, non tender Extremities: normal range of motion, non-tender, normal inspection Psychiatric: alert, oriented x 3 Crainal Nerves: normal hearing, normal speech Skin: normal color, warm/dry Progress/Results/Core Measures Results/Orders Lab Results Laboratory Tests Test 10/13/20 17:08 Range/Units Coronavirus 2019 (KAREN) Negative Negative My Orders Orders - DAVID TELLEZ APRN Ct Head/Cervical Spine Wo (10/13/20 17:05) Covid 19 Inhouse Test (10/13/20 17:05) Vital Signs/I&O 10/13/20 17:00 Temp 36.7 Pulse 88 Resp 16 B/P (MAP) 130/64 (86) Pulse Ox 98 O2 Delivery Room Air Blood Pressure Mean: 86 Departure Impression Primary Impression: Brain concussion Additional Impression: Upper respiratory infection Disposition: 01 HOME, SELF-CARE Condition: Stable Departure-Patient Inst. Decision time for Depature: 18:05 Referrals: NO,LOCAL PHYSICIAN (PCP) Primary Care Physician LOLLY ROSE (Family) Primary Care Physician Patient Instructions: Concussion in Adults, Upper Respiratory Infection ED Add. Discharge Instructions: 1. Return to ER for any concerns. Nausea would be common with concussions. Dizziness and headache may persist for a few days up to a few weeks. Take the antibiotics as directed for your ongoing upper respiratory infection symptoms. All discharge instructions reviewed with patient and/or family. Voiced understanding. Scripts Azithromycin (Azithromycin) 250 Mg Tablet 250 MG PO UD, #6 TAB TAKE 2 TABLETS ON DAY ONE THEN TAKE 1 TABLET DAILY FOR FOUR MORE DAYS Prov: DAVID TELLEZ APRN 10/13/20 Work/School Note: Work Release Form Date Seen in the Emergency Department: Oct 13, 2020 Return to Work: Oct 16, 2020 DAVID TELLEZ APRN Oct 13, 2020 17:08
[2020-10-13] MEDS ORDERED: AZIT250T12 PO (18:06)
--- NOTE | 2020-10-13 18:09 | Diagnostic Imaging Report ---
PROCEDURE: CT head and CT cervical spine without contrast. TECHNIQUE: Multiple contiguous axial images were obtained through the brain and cervical spine without the use of intravenous contrast. Sagittal and coronal reformations through the cervical spine were then performed. Auto Exposure Controls were utilized during the CT exam to meet ALARA standards for radiation dose reduction. INDICATION: Fall. Hit back of head. Loss of consciousness. Head and neck pain. Scalp contusion. COMPARISON: 08/17/2019. FINDINGS: CT head: No large acute territorial ischemia, mass or hemorrhage. No midline shift or mass effect. The ventricles, cortical sulci and basilar cisterns are patent and unremarkable. The calvarium is intact. The visualized paranasal sinuses are clear. CT cervical spine: No acute fracture or dislocation is seen in the cervical spine. No focal osseous lesions. Vertebral body heights are well maintained. The craniocervical junction is well-maintained. Soft tissues of the neck are unremarkable. The included lung apices are clear. IMPRESSION: 1. No hemorrhage or focal intra-axial mass. No CT evidence of large acute territorial ischemia. 2. No acute fracture or dislocation in the cervical spine. Dictated by: Dictated on workstation # [id number]
[2020-10-13 18:21] VITALS: BP 106/74
== END 2020-10-13 18:21 | disposition home or self-care (01) ==
LOC: EDUNIT# 16:44 → ER 16:46
DX: S06.0X1A Concussion with loss of consciousness of 30 minutes or less, initial encounter (principal); J06.9 Acute upper respiratory infection, unspecified; Z20.822 Contact with and (suspected) exposure to COVID-19; Z88.5 Allergy status to narcotic agent; W01.198A Fall on same level from slipping, tripping and stumbling with subsequent striking against other object, initial encounter
CPT/HCPCS: 70450; 72125; 99283; U0002; 87635

== ENCOUNTER 2021-08-24 23:39 | Emergency (ER) | payer MEDICAID ==
[~2021-08-24] VITALS: Ht 165.1 cm; Wt 72.1 kg
[~2021-08-24 23:39] MED LIST changes: +AZIT250T12 PO
--- OUTSIDE RECORDS SUMMARY | 2021-08-24 23:45 | XMS REPORT | Clinical Summary ---
Author Author [facility] Organization [facility] Address Unknown Phone Unavailable Care Team Providers Care Coloring Checker Name Role Phone PCP Unavailable Source Comments Some departments are not documenting in the electronic medical record. If you d o not see the information that you expected, contact Release of Information in [facility] Information Management department at [phone] for further assistan ce in locating additional records.[facility] Allergies Not on File Medications Not on file Active Problems Not on file Social History Date Tobacco Use Types Packs/Day Years Used Never Assessed Sex Assigned at Date Recorded Not on file Last Filed Vital Signs Not on file Plan of Treatment Health Maintenance Due Date Last Done Comments HIV SCREENING 2007 DTAP/TDAP VACCINES (1 - 2010 Tdap) HEPATITIS C SCREENING 2010 PHYSICAL (COMPREHENSIVE) 2010 EXAM CERVICAL CANCER SCREENING 2013 INFLUENZA VACCINE 04/01/2021 Results Not on filefrom Last 3 Months
[2021-08-25] MEDS ORDERED: diphenhydrAMINE 50 MG/ML INJ (BENADRYL) IVP ONE
[2021-08-25] MEDS ORDERED: diphenhydrAMINE 50 MG/ML INJ (BENADRYL) ONE
[2021-08-25] MEDS ORDERED: LORATADINE (CLARITIN) 10 MG TAB PO ONE
[2021-08-25] MEDS ORDERED: LORATADINE (CLARITIN) 10 MG TAB ONE
[2021-08-25] MEDS ORDERED: NS IV 500 ML 500 ML IV ONE
[2021-08-25] MEDS ORDERED: FAMOTIDINE 20MG/2ML IV (PEPCID) ONE
[2021-08-25] MEDS ORDERED: FAMOTIDINE 20MG/2ML IV (PEPCID) IVP ONE
[2021-08-25] MEDS ORDERED: EPIN0.3P18 IJ (00:16)
--- NOTE | 2021-08-25 00:16 | ED General ---
General Chief Complaint: Allergic Reaction Stated Complaint: ALLEGIC RXN Source of Information: Patient Exam Limitations: No Limitations History of Present Illness Date Seen by Provider: Aug 24, 2021 Time Seen by Provider: 23:52 Initial Comments Patient to the ER by private conveyance from work at the [employer] with chief complaint that she got to work around 10 started having some itchy skin and feeling like her tongue was swelling. 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 She took a 2 tablets of Benadryl p.o. at 1030. She says her symptoms continued to worsen with the itchiness. No nausea vomiting chest pain. She was concerned she might be heading towards anaphylaxis. She does not have epinephrine. Patient states they installed new air fresheners today and as soon as she arrived at work she can feel the symptoms starting Allergies and Home Medications Allergies Coded Allergies: codeine (Verified Allergy, Unknown, 11/03/18) Patient Home Medication List Home Medication List Reviewed: Yes Azithromycin (Azithromycin) 250 Mg Tablet, 250 MG PO UD Prescribed by: DAVID TELLEZ on 10/13/20 1806 Epinephrine (Epinephrine) 0.3 Mg/0.3 Ml Auto.injct, 0.3 MG IJ Q15M PRN for Anaphylaxis Prescribed by: ARIS BORJAS on 08/25/21 0016 Vits W-Ca,Fe,Fa(<1MG) () 1 Each Tablet, 1 TAB PO DAILY, (Reported) Entered as Reported by: DANO ESQUEDA on 11/20/11 1416 Quetiapine Fumarate (Seroquel) 25 Mg Tablet, 25 MG PO BID Prescribed by: DAVID TELLEZ on 08/17/19 1727 Review of Systems Review of Systems Constitutional: No chills, No diaphoresis EENTM: No ear discharge, No ear pain Respiratory: No cough, No short of breath Cardiovascular: No chest pain, No palpitations Gastrointestinal: No abdominal pain, No constipation Genitourinary: No discharge, No dysuria All Other Systems Reviewed Negative Unless Noted: Yes Past Ztlivsf-Fpnyhy-Hwtksc Hx Patient Social History Tobacco Use?: No Use of E-Cig and/or Vaping dev: No Immunizations Up To Date Tetanus Booster (TDap): Unknown PED Vaccines UTD: Yes Past Medical History Surgeries: Yes Appendectomy, Gallbladder, Orthopedic Respiratory: No Cardiac: No Neurological: No Genitourinary: No Gastrointestinal: No Musculoskeletal: No HEENT: No Cancer: No Psychosocial: No Integumentary: No Blood Disorders: No Adverse Reaction/Blood Tranf: No Physical Exam Vital Signs Vital Signs - First Documented 08/24/21 23:47 Temp 36.8 Pulse 87 Resp 16 B/P (MAP) 138/80 (99) Pulse Ox 99 O2 Delivery Room Air Capillary Refill : Height, Weight, BMI Height: 5'5.00" Weight: 140lbs. oz. [id number]; 24.00 BMI Method:Estimated General Appearance: No Apparent Distress, WD/WN HEENT: PERRL/EOMI, Normal ENT Inspection (No evidence of swollen tongue or retropharyngeal tissues), Pharynx Normal, Moist Mucous Membranes Neck: Full Range of Motion, Normal Inspection Respiratory: Lungs Clear, Normal Breath Sounds, No Accessory Muscle Use, No Respiratory Distress Cardiovascular: Regular Rate, Rhythm, Normal Peripheral Pulses Extremity: Normal Capillary Refill, Normal Inspection, No Pedal Edema Neurologic/Psychiatric: Alert, Oriented x3 Progress/Results/Core Measures Suspected Sepsis SIRS Temperature: Pulse: Respiratory Rate: Blood Pressure / Mean: Results/Orders My Orders Orders - ARIS BORJAS Loratadine Tablet (Claritin Tablet) (08/25/21 00:00) Diphenhydramine Injection (Benadryl Inje (08/25/21 00:00) Famotidine Injection (Pepcid Injection) (08/25/21 00:00) Ed Iv/Invasive Line Start (08/25/21 00:00) Ns Iv 500 Ml (Sodium Chloride 0.9%) (08/25/21 00:00) Diphenhydramine Injection (Benadryl Inje (08/25/21 00:00) Loratadine Tablet (Claritin Tablet) (08/25/21 00:00) Famotidine Injection (Pepcid Injection) (08/25/21 00:00) Medications Given in ED Current Medications Medications Dose Ordered Sig/Luis Route Start Time Stop Time Status Last Admin Dose Admin Diphenhydramine HCl 25 mg ONCE ONCE IVP 08/25/21 00:00 08/25/21 00:03 DC 08/25/21 00:00 25 MG Famotidine 20 mg ONCE ONCE IVP 08/25/21 00:00 08/25/21 00:03 DC 08/25/21 00:00 20 MG Loratadine 10 mg ONCE ONCE PO 08/25/21 00:00 08/25/21 00:03 DC 08/25/21 00:00 10 MG Sodium Chloride 500 ml @ 0 mls/hr Q0M ONCE IV 08/25/21 00:00 08/25/21 00:03 DC 08/25/21 00:16 1,000 MLS/HR Vital Signs/I&O 08/24/21 08/24/21 23:47 23:47 Temp 36.8 Pulse 87 Resp 16 B/P (MAP) 138/80 (99) Pulse Ox 99 O2 Delivery Room Air Room Air Capillary Refill : Progress Note #1: Time: 00:13 Progress Note IV established, 500 cc of fluids, will watch her for little bit give her 25 mg of Benadryl, 20 mg of Pepcid, Claritin 10 mg. Progress Note #2: Time: 00:36 Progress Note Patient is feeling much better. She is not having any itching or shortness of air. She is never had any stridor or wheezing or tongue swelling. She would like to go home so we provided her with a note for work. She does not have a autoinjector for epinephrine so I gave her a prescription to [facility] Dep[facility] Impression Primary Impression: Allergic reaction Qualified Codes: T78.40XA - Allergy, unspecified, initial encounter Disposition: 01 HOME, SELF-CARE Condition: Stable Departure-Patient Inst. Decision time for Depature: 00:36 Referrals: LOLLY ROSE (PCP/Family) Primary Care Physician Patient Instructions: Allergic Reaction ED Add. Discharge Instructions: Benadryl 1 to 2 tablets every 6 hours as necessary for breakthrough itching. Claritin 10 mg twice a day until itching goes away. Pepcid 20 mg twice a day until the itching goes away. If your tongue start swelling or you have difficulties swallowing or breathing then give yourself 1 injection of epinephrine every [address] to the ER. All discharge instructions reviewed with patient and/or family. Voiced understanding. Scripts Epinephrine (Epinephrine) 0.3 Mg/0.3 Ml Auto.injct 0.3 MG IJ Q15M PRN for Anaphylaxis, #2 EA 0 Refills Prov: ARIS BORJAS 08/25/21 Work/School Note: Work Release Form Date Seen in the Emergency Department: Aug 25, 2021 Return to Work: Aug 27, 2021 Restrictions: No Restrictions ARIS BORJAS Aug 25, 2021 00:16
[2021-08-25 00:38] VITALS: BP 138/80
== END 2021-08-25 00:49 | disposition home or self-care (01) ==
LOC: EDUNIT# 23:39 → ER 23:42
DX: T78.40XA Allergy, unspecified, initial encounter (principal)